=== PATIENT | male | born 1990 | race Caucasian/White ===

== ENCOUNTER 2018-11-05 18:20 | Emergency (ER) | payer BC ==
[~2018-11-05] VITALS: Ht 175.3 cm; Wt 109.1 kg
[2018-11-05 18:47] VITALS: Ht 175.3 cm; Wt 109.1 kg
[2018-11-05] MEDS ORDERED: TORADOL10 MG PO (21:08)
[2018-11-05 21:39] VITALS: BP 115/74
== END 2018-11-05 21:40 | disposition home or self-care (01) ==
LOC: D.ER 18:20
DX: R10.32 Left lower quadrant pain (principal); R10.31 Right lower quadrant pain; S30.1XXA Contusion of abdominal wall, initial encounter; V49.49XA Driver injured in collision with other motor vehicles in traffic accident, initial encounter